=== PATIENT | male | born 1995 | race Caucasian/White ===

== ENCOUNTER 2023-11-19 15:17 | Emergency (ER) | payer SELFPAY ==
[2023-11-19] MEDS ORDERED: Ketorolac Tromethamine 30 MG (1 mL) VIAL ONE (15:49)
== END 2023-11-19 16:35 | disposition home or self-care (01) ==
LOC: ERS 15:17
DX: S13.4XXA Sprain of ligaments of cervical spine, initial encounter (principal); V89.2XXA Person injured in unspecified motor-vehicle accident, traffic, initial encounter
CPT/HCPCS: 72125; 96372; J1885